=== PATIENT | male | born 1985 | race Caucasian/White ===

== ENCOUNTER 2017-03-11 17:14 | Emergency (ER) | payer OTHER ==
[~2017-03-11] VITALS: Ht 180.3 cm; Wt 168.0 kg
[~2017-03-11 17:14] MED LIST: HYDR1TAB; MOXI400T
[2017-03-11 17:43] VITALS: Ht 180.3 cm; Wt 168.0 kg
[2017-03-11] MEDS ORDERED: MECL12.574 PO (19:19)
[2017-03-11] MEDS ORDERED: ACET500C5 PO (19:20)
[2017-03-11 19:29] VITALS: BP 127/78; PULSE 72; RESP 20; TEMP 98.1
--- NOTE | 2017-03-11 19:37 | ERD ---
ER Documentation Chief Complaint Date/Time DATE: 03/11/17 TIME: 19:34 Chief Complaint DIZZINESS AND NAUSEA HPI Patient is a 31-year-old male with no past medical history who presents to the ED with one episode of lightheadedness and dizziness this morning. He states that he woke up and got out of his bed and felt lightheaded. He states that the time the room was spinning. He did not pass out and denies syncopal episodes. Denies headache or neck pain. Denies chest pain or cough or shortness of breath. States that he is feeling much better since this morning. States that he has been stressed due to family issues and his dad's health. He also states that for the last month he has not been sleeping well and has been sleeping 3 hours a night. States that he does have a history of anxiety and feels that it is associated with the stress and anxiety and the lack of sleep. He denies any heart conditions in his family. Denies leg pain or leg swelling. Denies recent travel or recent surgeries. He has no other complaints today. ROS All systems reviewed and are negative except as per history of present illness. Medications Home Meds Active Scripts Acetaminophen* (Tylophen*) 500 Mg Capsule, 1 CAP PO Q6H Y for PAIN AND OR ELEVATED TEMP, #20 CAP Prov:MAL GONZALEZ PA-C 03/11/17 Meclizine Hcl* (Antivert*) 12.5 Mg Tab, 12.5 MG PO Q6H Y for DIZZINESS, #20 TAB Prov:MAL GONZALEZ PA-C 03/11/17 Reported Medications Moxifloxacin Hcl* (Avelox*) 400 Mg Tablet 05/29/10 Hydrocodone Bit/Acetaminophen (Hydrocodone/Apap 5/500 Tab) 1 Tab Tablet 05/29/10 Allergies Allergies: Coded Allergies: No Known Drug Allergy (Verified Allergy, Mild, 05/29/10) PMhx/Soc History of Surgery: No Anesthesia Reaction: No Hx Neurological Disorder: No Hx Respiratory Disorders: No Hx Cardiac Disorders: No Hx Psychiatric Problems: No Hx Miscellaneous Medical Probl: Yes (AB HERNIA) Hx Alcohol Use: Yes Hx Substance Use: Yes (COCAINE,MARIJUANA) Hx Tobacco Use: No Smoking Status: Never smoker FmHx Family History: No coronary disease, No diabetes, No other Physical Exam Vitals Physical Exam GENERAL: Well-developed, well-nourished obese male. Appears in no acute distress. HEAD: Normocephalic, atraumatic. EYES: Pupils are equally reactive bilaterally. EOMs grossly intact. No conjunctival erythema. No nystagmus. ENT: Moist mucous membranes. No uvula deviation. No kissing tonsils. No exudates. NECK: Supple. No lymphadenopathy or thyromegaly. No meningismus. negative kernig. negative brudinski. LUNG: Clear to auscultation bilaterally. No rhonchi, wheezing, rales or coarse breath sounds. HEART: Regular rate and rhythm. No murmurs, rubs or gallops. Extremities: Equal pulses bilaterally. No peripheral clubbing, cyanosis or edema. No unilateral leg swelling. NEUROLOGIC: Alert and oriented. Moving all four extremities. 5/5 strength in all extremities. Normal speech. Steady gait. Negative for ataxia. Negative Romberg test. Cranial nerves II through XII intact SKIN: Normal color. Warm and dry. No rashes or lesions. Capillary refill < 2 seconds Procedures/MDM ER COURSE: I kept the patient and/or family informed of laboratory and diagnostic imaging results throughout the emergency room course. IMAGING STUDIES EKG performed, read by Dr. Hawley 67 bpm, normal sinus rhythm, normal axis, no acute ST segment changes, no T wave inversion MEDICAL DECISION MAKING: This is a 31-year-old male with no past medical his who presents with one episode of lightheadedness and dizziness 6 hours ago. Vital signs were reviewed. Patient is afebrile. Patient is not hypoxic. Patient is not toxic or ill-appearing. Patient likely has dizziness of unknown etiology. At this point I do not think any blood work or imaging study is necessary at this time. Risks are greater than benefits. I discussed the possibility of a CT scan. However at this point I do not think a CT scan is necessary. Patient's exam was within normal limits. Low suspicion for intracranial hemorrhage, meningitis , intracranial mass, concussion, temporal arteritis, stroke, elevated intracranial pressure, seizure. Low suspicion for ACS, PE, AAA, dissection, DVT DISCHARGE: At this time, patient is stable for discharge and outpatient management with no new complaints during the ER course. Patient was sent home with Tylenol and meclizine and names of primary care clinics in the area. Patient to follow-up with.. Patient will be discharged home with instructions to recheck for new or worsening symptoms such as fever, nausea, weakness, LOC and to follow up with primary care in the next 1-2 days. Patient was advised to return to the ER for any new or worsening symptoms. Plan was discussed and patient and/or family understands and agrees. Home instructions were given. Departure Diagnosis: Primary Impression: Dizziness Condition: Stable Patient Instructions: Treating Insomnia, Stress Relief: Activities, Stress Relief: A Positive Lifestyle, Dizziness, Unk Cause Referrals: [facility] YOU HAVE RECEIVED A MEDICAL SCREENING EXAM AND THE RESULTS INDICATE THAT YOU DO NOT HAVE A CONDITION THAT REQUIRES URGENT TREATMENT IN THE EMERGENCY DEPARTMENT. FURTHER EVALUATION AND TREATMENT OF YOUR CONDITION CAN WAIT UNTIL YOU ARE SEEN IN YOUR DOCTORS OFFICE WITHIN THE NEXT 1-2 DAYS. IT IS YOUR RESPONSIBILITY TO MAKE AN APPOINTMENT FOR FOLOW-UP CARE. IF YOU HAVE A PRIMARY DOCTOR --you should call your primary doctor and schedule an appointment IF YOU DO NOT HAVE A PRIMARY DOCTOR YOU CAN CALL OUR PHYSICIAN REFERRAL HOTLINE AT IF YOU CAN NOT AFFORD TO SEE A PHYSICIAN YOU CAN CHOSE FROM THE FOLLOWING [facility] [address] [facility]. [facility] [address] [facility] [facility] [address] [facility] [facility] [address] [facility] [facility] [address] [facility]. [facility]. [address] Additional Instructions: Call your primary care doctor TOMORROW for an appointment during the next 1-2 days.See the doctor sooner or return here if your condition worsens before your appointment time. MAL GONZALEZ PA-C Mar 11, 2017 19:37 [address] Additional Instructions: Call your primary care doctor TOMORROW for an appointment during the next 1-2 days.See the doctor sooner or return here if your condition worsens before your appointment time. MAL GONZALEZ PA-C Mar 11, 2017 19:37
== END 2017-03-11 19:30 | disposition home or self-care (01) ==
LOC: FTE 17:14
DX: R42 Dizziness and giddiness (principal)
CPT/HCPCS: 93005